=== PATIENT | female | born 1995 | race African-American/Black ===

== ENCOUNTER 2019-07-20 15:43 | Observation (INO) | payer OTHER ==
[2019-07-20] MEDS ORDERED: IV RINGERS,LACTATED 1000ML 1,000 ML IV SCH (15:54)
[2019-07-20 16:18] LABS: BILIRUBIN,URINE NEGATIVE (NEG); CLARITY,URINE CLOUDY; COLOR,URINE YELLOW; NITRITE,URINE NEGATIVE (NEG); PROTEIN,URINE NEGATIVE (NEG-TRACE)
[2019-07-20 16:45] LABS: SQUAMOUS EPITHELIAL CELL,UR MOD /LPF
[2019-07-20 16:46] LABS: RBC,URINE OCC /HPF (0-2)
[2019-07-20 16:47] LABS: BACTERIA,URINE FEW /HPF (0-FEW)
[2019-07-20 16:49] LABS: AMNIO PT NEGATIVE
--- NOTE | 2019-07-20 17:28 | RAD ---
Examination: OB LIMITED History: Leaking fluid for 4 days. Cramping Comparison/Correlation: None Findings: Limited OB ultrasound exam was performed. Single living intrauterine gestation is present. movement including cardiac activity with heart rate of 145 bpm is identified. Posteriorly located placenta is present. anatomy identified include: Four-chamber heart, three-vessel cord, bladder, stomach, bilateral kidneys, and brain. Extremities are partially visualized. Spine is not well delineated on this exam. Amniotic fluid index is 10.3 which is normal. Biparietal diameter is 7.4 cm corresponding to 29 weeks 4 days. Head circumference is 27.1 cm corresponding 29 weeks 4 days. Abdominal circumference is 20 cm corresponding 26 weeks 3 days. Femur length 5.5 cm corresponding to 28 weeks 6 days. Head circumference to abdominal circumference ratio is 1.23. Estimated weight is 1126 g. This is at the 25th percentile. Ultrasound EDC 10/08/2019. Average ultrasound age of 28 weeks 4 days. Impression: Single living intrauterine gestation with cephalic lie is present. Average ultrasound age of 28 weeks and 4 days is 1 week and 1 day less than expected compared to clinical age. No suspicious findings on this limited exam. Normal amniotic fluid volume. Electronically signed by: Alvarado Dickinson MD (07/20/2019 5:25 PM) [facility]
== END 2019-07-20 17:44 | disposition home or self-care (01) ==
LOC: 3 SO LND 15:43
PROVIDERS: ADMIT Obstetrics & Gynecology; ATTEND Obstetrics & Gynecology
DX: O42.913 Preterm premature rupture of membranes, unspecified as to length of time between rupture and onset of labor, third trimester (principal); O62.9 Abnormality of forces of labor, unspecified; Z3A.29 29 weeks gestation of pregnancy
CPT/HCPCS: 36415; 76815; 81001; 84112; 87086; G0378; G0379